=== PATIENT | female | born 1955 | race Caucasian/White ===

== ENCOUNTER 2019-12-23 15:54 | Emergency (ER) | payer OTHER ==
[~2019-12-23] VITALS: Ht 157.5 cm; Wt 59.9 kg
[2019-12-23 16:08] VITALS: Ht 157.5 cm; Wt 59.9 kg
[2019-12-23 19:30] VITALS: BP 132/72
== END 2019-12-23 19:30 | disposition home or self-care (01) ==
LOC: ED 15:54
DX: U07.1 COVID-19 (principal)
CPT/HCPCS: 87804; Q0092; U0003-CS